=== PATIENT | male | born 1965 | race Caucasian/White ===

== ENCOUNTER → 2016-10-02 | Outpatient (CLI) | payer MEDICARE, OTHER ==
[2016-10-02 09:25] LABS: Appearance,Urine Clear (Clear); Bilirubin,Urine Negative (Negative); Glucose,Urine (UA) Negative (Negative); Ketones,Urine Negative (Negative); Leukocyte Esterase,Urine Negative (Negative); Nitrite,Urine Negative (Negative); PH, Urine 5.5 (5.0-8.0); Protein,Urine Negative (Negative); Specific Gravity,Urine 1.009 (1.001-1.035); UA Billing (MACRO vs. MICRO) CHEM; Urobilinogen,Urine <2.0 mg/dL (<2.0)
[2016-10-02 09:26] LABS: Basophils % (A) 1 %; CH 35.2; Eosinophils # (A) 0.4 k/uL (0-0.7); Eosinophils % (A) 7 %; HCT 49.2 % (39.0-53.0); HDW 2.94; HGB 17.1 gm/dL (13.0-17.5); Luc % (Auto) 2; Lymphocytes # (A) 1.1 k/uL (1.0-4.8); Lymphocytes % (A) 19 %; MCH 34.3 pg (25.0-35.0); MCHC 34.9 g/dL (31.0-37.0); MCV 98.3 fL (80.0-100.0); Mean Platelet Volume 8.6; Monocytes # (A) 0.3 k/uL (0-1.0); Monocytes % (A) 4 %; Neutrophils # (A) 3.8 k/uL (1.3-7.7); Neutrophils % (A) 67 %; RDW 13.2 % (11.5-15.5); WBC 5.7 k/uL (3.8-10.6); WBC (Perox) 5.71
--- NOTE | 2016-10-02 09:31 | XR ---
EXAMINATION TYPE: XR chest 2V DATE OF EXAM: 10/02/2016 9:26 AM COMPARISON: 12/25/2012 TECHNIQUE: PA and lateral views submitted. HISTORY: Cough and congestion FINDINGS: The lungs are clear and there is no pneumothorax, pleural effusion, or focal pneumonia. Biapical pl eural thickening. IMPRESSION: 1. No acute process.
[2016-10-02 10:21] LABS: ALT 59 U/L (21-72); AST 49 U/L (17-59); Alkaline Phosphatase 61 U/L (38-126); Anion Gap 10 mmol/L; Blood Urea Nitrogen 8 mg/dL (9-20); Calcium 9.4 mg/dL (8.4-10.2); Carbon Dioxide 23 mmol/L (22-30); Chloride 113 mmol/L (98-107); Cholesterol 166 mg/dL (<200); Creatine Kinase 31 U/L (55-170); Glucose 115 mg/dL (74-99); HDL Cholesterol 29 mg/dL (40-60); Non-African American GFR(MDRD) >60 (>60 ml/min/1.73 sqM); Potassium 3.9 mmol/L (3.5-5.1); Sodium 146 mmol/L (137-145); Total Protein 7.2 g/dL (6.3-8.2); Triglycerides 262 mg/dL (<150)
[2016-10-02 10:50] LABS: Prostate Specific Antigen 0.84 ng/mL (0.00-4.00)
[2016-10-02 10:52] LABS: Erythrocyte Sedimentation Rate 3 mm/hr (0-15)
[2016-10-02 11:08] LABS: Vitamin B12 368 pg/mL (239-931)
[2016-10-02 11:50] LABS: Hepatitis B Surface Ag Index 0.07
[2016-10-02 11:55] LABS: Hepatitis B Core IgM Index 0.04
[2016-10-02 12:07] LABS: Hepatitis C Virus IgG Index 0.02
[2016-10-02 12:13] LABS: Hepatitis C Virus IgG Ab Negative (Negative)
[2016-10-04 03:56] LABS: HIV-1/HIV-2 Ab Screen NONREAC (NON REAC)
== END ==
LOC: LABWHC1 09:02
PROVIDERS: ATTEND Family Medicine
DX: Z00.01 Encounter for general adult medical examination with abnormal findings (principal); R05 Cough; F32.1 Major depressive disorder, single episode, moderate; N40.1 Benign prostatic hyperplasia with lower urinary tract symptoms; Z11.59 Encounter for screening for other viral diseases
CPT/HCPCS: 36415; 71020; 80053; 80061; 80074; 81003; 82306; 82550; 82607; 84153; 84443; 85025; 85652; 87389

== ENCOUNTER 2016-10-23 20:01 | Emergency (ER) | payer MEDICARE, OTHER ==
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
[2016-10-23 21:25] VITALS: BP 118/82; PULSE 88; RESP 17; TEMP 98.7
== END 2016-10-23 21:23 ==
LOC: EC 20:01
DX: F10.229 Alcohol dependence with intoxication, unspecified (principal); F17.200 Nicotine dependence, unspecified, uncomplicated; Z02.89 Encounter for other administrative examinations; V49.88XA Car occupant (driver) (passenger) injured in other specified transport accidents, initial encounter; Y92.410 Unspecified street and highway as the place of occurrence of the external cause
CPT/HCPCS: 99282; 99283

== ENCOUNTER → 2017-05-02 | Outpatient (CLI) | payer MEDICARE, OTHER ==
[2017-05-02 11:19] LABS: Hemoglobin A1C 5.7 % (4.2-6.1)
[2017-05-02 13:35] LABS: Anion Gap 11 mmol/L; Blood Urea Nitrogen 8 mg/dL (9-20); Calcium 9.3 mg/dL (8.4-10.2); Carbon Dioxide 22 mmol/L (22-30); Chloride 113 mmol/L (98-107); Cholesterol 161 mg/dL (<200); Glucose 141 mg/dL (74-99); HDL Cholesterol 27 mg/dL (40-60); Lithium 0.6 mmol/L; Non-African American GFR(MDRD) >60 (>60 ml/min/1.73 sqM); Phosphorous 3.2 mg/dL (2.5-4.5); Potassium 4.1 mmol/L (3.5-5.1); Sodium 146 mmol/L (137-145)
== END | disposition home or self-care (01) ==
LOC: LABWHC1 07:18
PROVIDERS: ATTEND Psychiatry & Neurology Psychiatry
DX: F10.20 Alcohol dependence, uncomplicated (principal); F33.1 Major depressive disorder, recurrent, moderate; Z79.899 Other long term (current) drug therapy
CPT/HCPCS: 36415; 80061; 80069; 80178; 83036; 84439; 84443

== ENCOUNTER → 2018-06-28 | Outpatient (CLI) | payer MEDICARE, OTHER ==
--- NOTE | 2018-06-28 14:41 | XR ---
EXAMINATION TYPE: XR chest 2V DATE OF EXAM: 06/28/2018 COMPARISON: Prior chest x-ray 10/02/2016 HISTORY: Tobacco abuse TECHNIQUE: Frontal and lateral views of the chest are obtained. FINDINGS: There is no focal air space opacity, pleural effusion, or pneumothorax seen. The cardiac silhouette size is within normal limits. There is a spinal curvature. The osseous structures are in tact. IMPRESSION: No acute cardiopulmonary process.
== END ==
LOC: RADXRMAIN 12:07
PROVIDERS: ATTEND Internal Medicine
DX: Z09 Encounter for follow-up examination after completed treatment for conditions other than malignant neoplasm (principal); Z72.0 Tobacco use
CPT/HCPCS: 71046

== ENCOUNTER 2019-09-07 06:43 | Day surgery (SDC) | payer MEDICARE, OTHER ==
[2019-09-04 15:46] VITALS: BMI 31.1
--- NOTE | 2019-09-06 17:07 | P.GSHP ---
History of Present Illness H&P Date: 09/07/19 CHIEF COMPLAINT: Colon screen HISTORY OF PRESENT ILLNESS: The patient is a 54-year-old male who presents for colon screen. Lower endoscopy was offered for further evaluation and management. PAST MEDICAL HISTORY: Please see list. PAST SURGICAL HISTORY: Please see list. MEDICATIONS: Please see list. ALLERGIES: Please see list. SOCIAL HISTORY: No illicit drug use FAMILY HISTORY: No reports of Crohn disease or ulcerative colitis. REVIEW OF ORGAN SYSTEMS: CONSTITUTIONAL: No reports of fevers or chills. PHYSICAL EXAM: VITAL SIGNS: Stable GENERAL: Well-developed pleasant in no acute distress. HEENT: No scleral icterus. Extraocular movements grossly intact. Moist buccal mucosa. NECK: Supple without lymphadenopathy. CHEST: Unlabored respirations. Equal bilateral excursions. CARDIOVASCULAR: Regular rate and rhythm. Distal 2+ pulses. ABDOMEN: Soft, nontender, nondistended. MUSCULOSKELETAL: No clubbing, cyanosis, or edema. ASSESSMENT: 1. Colon screen. PLAN: 1. Recommend proceeding with a lower endoscopy Past Medical History Past Medical History: Thyroid Disorder History of Any Multi-Drug Resistant Organisms: None Reported Past Surgical History: Orthopedic Surgery Additional Past Surgical History / Comment(s): COLONOSCOPY. REPAIR FX RT LEG X 2. SKIN GRAFT AT AGE 3 Past Anesthesia/Blood Transfusion Reactions: No Reported Reaction Smoking Status: Current every day smoker - Past Family History Mother Family Medical History: No Reported History Medications and Allergies Home Medications Medication Instructions Recorded Confirmed Type FLUoxetine HCL [PROzac] 80 mg PO DAILY 09/04/19 09/04/19 History Levothyroxine Sodium [Synthroid] 50 mcg PO DAILY 09/04/19 09/04/19 History [place] Carbonate [[place] 600 mg PO BID 09/04/19 09/04/19 History Carbonate ER] OLANZapine 15 mg PO HS 09/04/19 09/04/19 History Topiramate [Topamax] 100 mg PO BID 09/04/19 09/04/19 History Vivitrol 1 dose INJ Q120D 09/04/19 History traZODone HCL 100 mg PO HS 09/04/19 09/04/19 History Allergies Allergy/AdvReac Type Severity Reaction Status Date / Time No Known Allergies Allergy Verified 09/04/19 15:37
[~2019-09-07 06:43] MED LIST: LACTATED RINGERS 1,000 ML IV SCH; LIDOCAINE 1% 20 ML VIAL (10MG/ML) FOR IV START INTRADERMA PRN
[2019-09-07 07:17] VITALS: TEMP 97
[2019-09-07] MEDS ORDERED: PROPOFOL 10 MG/ML 20 ML VIAL IV ONE (07:30)
--- NOTE | 2019-09-07 08:09 | P.PCN ---
Date of Procedure: 09/07/19 Description of Procedure: PREOPERATIVE DIAGNOSIS: Personal history of colon polyps Family history malignant colon polyps Colonoscopy screening POSTOPERATIVE DIAGNOSIS: Personal history of colon polyps Family history malignant colon polyps Colonoscopy screening Tubular adenoma ascending colon Tubular adenoma transverse colon Sigmoid diverticulosis Arteriovenous malformation descending colon OPERATION: Colonoscopy to the ileocecal valve and appendiceal orifice. Colonoscopy with multiple hot snare polypectomies Colonoscopy with cold forceps biopsies SURGEON: Lillie Barajas MD. ANESTHESIA: MAC. INDICATIONS: The patient is an 54-year-old male who presents family history of malignant colon polyps and personal history of colon polyps. Last colonoscopy within 5 years. Benefits and risks were described and informed consent was obtained. DESCRIPTION OF PROCEDURE: The patient had undergone Suprep. He had been brought into the operating room and laid in the left lateral decubitus position. After adequate intravenous sedation, the rectum was examined with 2% lidocaine jelly. The prostate fossa was unremarkable. No external hemorrhoids were encountered. The rectal tone was within normal limits. No lesions were palpated in the rectal vault. An Olympus colonoscope was advanced until the ileocecal valve and appendiceal orifice were clearly viewed. The prep was fair. Sigmoid diverticulosis was encountered. Multiple colonic polyps were found and snare polypectomy. No evidence of focal colitis was found. Arteriovenous malformation 4 mm at 30 cm from the anal verge, descending colon without bleeding. Retroflexion of the scope demonstrated grade 1 internal hemorrhoids without active bleeding or inflammation. The colon was desufflated. The patient had tolerated the procedure well. Withdrawal time was over 6 minutes. FINDINGS: Aron[place]ick preparation quality scale 3 (1-5) Internal hemorrhoids, grade 1 No external hemorrhoids Arteriovenous malformation 4 mm at descending colon, 30 cm from the anal verge without bleeding. Sigmoid diverticulosis Removal of 4 polyps: - Snare polypectomy mid transverse colon, 8 mm tubulovillous adenoma polyp. - Snare polypectomy proximal transverse colon, 6 mm flat villous adenoma polyp. - Snare polypectomy distal transverse colon, 5 mm flat villous adenoma polyp. - Cold forceps biopsy at ascending colon, 4 mm polyp. No focal colitis. RECOMMENDATIONS: Repeat colonoscopy in 3 years, 2022 Plan - Discharge Summary Discharge Rx Participant: No New Discharge Prescriptions: No Action Topiramate [Topamax] 100 mg PO BID Levothyroxine Sodium [Synthroid] 50 mcg PO DAILY FLUoxetine HCL [PROzac] 80 mg PO DAILY traZODone HCL 100 mg PO HS Vivitrol 1 dose INJ Q120D OLANZapine 15 mg PO HS [place] Carbonate [[place] Carbonate ER] 600 mg PO BID Discharge Medication List FLUoxetine HCL [PROzac] 80 mg PO DAILY 09/04/19 [History] Levothyroxine Sodium [Synthroid] 50 mcg PO DAILY 09/04/19 [History] [place] Carbonate [[place] Carbonate ER] 600 mg PO BID 09/04/19 [History] OLANZapine 15 mg PO HS 09/04/19 [History] Topiramate [Topamax] 100 mg PO BID 09/04/19 [History] Vivitrol 1 dose INJ Q120D 09/04/19 [History] traZODone HCL 100 mg PO HS 09/04/19 [History]
[2019-09-07 08:11] VITALS: PULSE 58; RESP 16
[2019-09-07 08:18] VITALS: BP 125/76
== END 2019-09-07 08:40 | disposition home or self-care (01) ==
LOC: ORWHC2ENDO 06:43
PROVIDERS: ATTEND Surgery Plastic and Reconstructive Surgery
DX: Z12.11 Encounter for screening for malignant neoplasm of colon (principal); D12.3 Benign neoplasm of transverse colon; D12.2 Benign neoplasm of ascending colon; K64.0 First degree hemorrhoids; K57.30 Diverticulosis of large intestine without perforation or abscess without bleeding; Q27.39 Arteriovenous malformation, other site; Z86.010 Personal history of colon polyps; Z80.0 Family history of malignant neoplasm of digestive organs; E07.9 Disorder of thyroid, unspecified; F17.200 Nicotine dependence, unspecified, uncomplicated; E66.9 Obesity, unspecified; Z68.31 Body mass index [BMI] 31.0-31.9, adult; F41.9 Anxiety disorder, unspecified; F31.9 Bipolar disorder, unspecified; F20.9 Schizophrenia, unspecified; F10.11 Alcohol abuse, in remission; Z79.890 Hormone replacement therapy; Z79.899 Other long term (current) drug therapy
CPT/HCPCS: 88305; 45380; 45385; J2704

== ENCOUNTER → 2021-02-03 | Outpatient (CLI) | payer MEDICARE, OTHER ==
[2021-02-03 20:55] LABS: African American GFR (CKD) 97.1 (60.0-200.0); Chol/HDL Ratio 5.19; LDL Cholesterol,Calculated 76.4 mg/dL (0.0-131.0); Non-African American GFR(CKD) 83.8 (60.0-200.0); VLDL Calculation 36.6 mg/dL (5.00-40.00)
[2021-02-03 21:04] LABS: T4, Free (Free Thyroxine) 0.9 ng/dL (0.80-1.80)
== END | disposition home or self-care (01) ==
LOC: LABWHC1 08:10
PROVIDERS: ATTEND Psychiatry & Neurology Psychiatry
DX: Z79.899 Other long term (current) drug therapy (principal)
CPT/HCPCS: 36415; 80061; 80178; 82565; 82947; 83036; 84439; 84443; 84520

== ENCOUNTER 2021-11-07 21:31 | Inpatient (IN) | payer MEDICARE, OTHER ==
--- NOTE | 2021-11-07 22:13 | ED ---
General Adult HPI - General Chief complaint: Overdose Stated complaint: Mental Health Time Seen by Provider: 11/07/21 21:34 Source: patient, EMS, RN notes reviewed, old records reviewed Mode of arrival: EMS Limitations: no limitations - History of Present Illness Initial comments: 56-year-old male presenting for evaluation of possible medication overdose. Patient was transferred for psychiatric evaluation. He was sent to outside emergency department with concerns that he may have inadvertently taken multiple days of his medication which included lithium trazodone, olanzapine. Patient was found to have elevated lithium level at 2.01. He also had some mild elevation in creatinine at 1.7. His urine drug screen was negative. Patient himself had no complaints. - Related Data Home Medications Medication Instructions Recorded Confirmed FLUoxetine HCL [PROzac] 80 mg PO DAILY 09/04/19 09/04/19 Levothyroxine Sodium [Synthroid] 50 mcg PO DAILY 09/04/19 09/04/19 [place] Carbonate [[place] 600 mg PO BID 09/04/19 09/04/19 Carbonate ER] OLANZapine 15 mg PO HS 09/04/19 09/04/19 Topiramate [Topamax] 100 mg PO BID 09/04/19 09/04/19 Vivitrol 1 dose INJ Q120D 09/04/19 09/07/19 traZODone HCL 100 mg PO HS 09/04/19 09/04/19 Allergies Allergy/AdvReac Type Severity Reaction Status Date / Time No Known Allergies Allergy Verified 09/04/19 15:37 Review of Systems ROS Statement: Those systems with pertinent positive or pertinent negative responses have been documented in the HPI. ROS Other: All systems not noted in ROS Statement are negative. Past Medical History Past Medical History: Thyroid Disorder History of Any Multi-Drug Resistant Organisms: None Reported Past Surgical History: Orthopedic Surgery Additional Past Surgical History / Comment(s): COLONOSCOPY. REPAIR FX RT LEG X 2. SKIN GRAFT AT AGE 3 Past Anesthesia/Blood Transfusion Reactions: No Reported Reaction Past Psychological History: Anxiety, Bipolar, Depression, Schizophrenia Past Alcohol Use History: None Reported, Abuse Past Drug Use History: None Reported - Past Family History Mother Family Medical History: No Reported History General Exam Limitations: altered mental status General appearance: alert, in no apparent distress Head exam: Present: atraumatic, normocephalic Eye exam: Present: normal appearance, PERRL ENT exam: Present: normal exam Neck exam: Present: normal inspection. Absent: tenderness, meningismus Respiratory exam: Present: normal lung sounds bilaterally. Absent: respiratory distress, wheezes Cardiovascular Exam: Present: regular rate, normal rhythm GI/Abdominal exam: Present: soft. Absent: distended, tenderness, guarding Extremities exam: Present: normal inspection, normal capillary refill. Absent: pedal edema Neurological exam: Present: alert, oriented X3, CN II-XII intact. Absent: motor sensory deficit Psychiatric exam: Present: normal affect, normal mood Skin exam: Present: warm, dry, intact. Absent: cyanosis, diaphoretic Course Vital Signs 11/07/21 21:35 Temperature 98.1 F Pulse Rate 60 Respiratory 16 Rate Blood Pressure 129/68 O2 Sat by Pulse 100 Oximetry EKG Findings - EKG Comments: EKG Findings:: Sinus bradycardia rate of 50 moderate intraventricular conduction delay, VT interval 192, QRS duration 117, QTC [address] segment elevation. Medical Decision Making - Medical Decision Making 56-year-old male transferred for evaluation of possible drug overdose, mildly elevated lithium level 2.01. And a K eye. Patient had been seen by Dr. Yu prior to transfer. Will be admitted to Dr. Yu for monitoring, psychiatric consultation, and repeat lithium levels. - Lab Data Result diagrams: 11/07/21 22:02 11/07/21 22:02 Lab Results 11/07/21 11/07/21 11/07/21 Range/Units 22:02 22:02 22:02 WBC 5.2 (3.8-10.6) k/uL RBC 3.95 L (4.30-5.90) m/uL Hgb 13.3 (13.0-17.5) gm/dL Hct 38.7 L (39.0-53.0) % MCV 98.1 (80.0-100.0) fL MCH 33.6 (25.0-35.0) pg MCHC 34.3 (31.0-37.0) g/dL RDW 12.2 (11.5-15.5) % Plt Count 191 (150-450) k/uL MPV 8.7 Neutrophils % 58 % Lymphocytes % 27 % Monocytes % 5 % Eosinophils % 8 % Basophils % 1 % Neutrophils # 3.0 (1.3-7.7) k/uL Lymphocytes # 1.4 (1.0-4.8) k/uL Monocytes # 0.2 (0-1.0) k/uL Eosinophils # 0.4 (0-0.7) k/uL Basophils # 0.1 (0-0.2) k/uL PT 11.6 (9.0-12.0) sec INR 1.1 (<1.2) Sodium 138 (137-145) mmol/L Potassium 3.7 (3.5-5.1) mmol/L Chloride 111 H (98-107) mmol/L Carbon Dioxide 16 L (22-30) mmol/L Anion Gap 11 mmol/L BUN 19 (9-20) mg/dL Creatinine 1.49 H (0.66-1.25) mg/dL Est GFR (CKD-EPI)AfAm 60 (>60 ml/min/1.73 sqM) Est GFR (CKD-EPI)NonAf 52 (>60 ml/min/1.73 sqM) Glucose 114 H (74-99) mg/dL Calcium 8.7 (8.4-10.2) mg/dL Magnesium 2.3 (1.6-2.3) mg/dL Total Bilirubin 0.4 (0.2-1.3) mg/dL AST 26 (17-59) U/L ALT 21 (4-49) U/L Alkaline Phosphatase 41 (38-126) U/L Total Protein 7.0 (6.3-8.2) g/dL Albumin 4.3 (3.5-5.0) g/dL Salicylates <1.0 mg/dL Acetaminophen <10.0 ug/mL [place] 1.7 mmol/L Serum Alcohol <10 mg/dL Disposition Clinical Impression: Accidental drug overdose, [place] overdose Disposition: ADMITTED IP TO THIS HOSP Condition: Stable Is patient prescribed a controlled substance at d/c from ED?: No Referrals: [facility] [Primary Care Provider] - 1-2 days Time of Disposition: 22:40
[2021-11-07 22:14] LABS: Basophils # (A) 0.1 k/uL (0-0.2); Basophils % (A) 1 %; Eosinophils # (A) 0.4 k/uL (0-0.7); Eosinophils % (A) 8 %; HCT 38.7 % (39.0-53.0); HGB 13.3 gm/dL (13.0-17.5); Lymphocytes # (A) 1.4 k/uL (1.0-4.8); Lymphocytes % (A) 27 %; MCH 33.6 pg (25.0-35.0); MCHC 34.3 g/dL (31.0-37.0); MCV 98.1 fL (80.0-100.0); Mean Platelet Volume 8.7; Monocytes # (A) 0.2 k/uL (0-1.0); Monocytes % (A) 5 %; Neutrophils % (A) 58 %; Platelet Count 191 k/uL (150-450); RBC 3.95 m/uL (4.30-5.90); RDW 12.2 % (11.5-15.5); WBC 5.2 k/uL (3.8-10.6)
[2021-11-07 22:22] LABS: ALT 21 U/L (4-49); AST 26 U/L (17-59); Acetaminophen <10.0 ug/mL; African American GFR (CKD) 60 (>60 ml/min/1.73 sqM); Albumin 4.3 g/dL (3.5-5.0); Alcohol <10 mg/dL; Alkaline Phosphatase 41 U/L (38-126); Anion Gap 11 mmol/L; Blood Urea Nitrogen 19 mg/dL (9-20); Calcium 8.7 mg/dL (8.4-10.2); Carbon Dioxide 16 mmol/L (22-30); Chloride 111 mmol/L (98-107); Glucose 114 mg/dL (74-99); Lithium 1.7 mmol/L; Magnesium 2.3 mg/dL (1.6-2.3); Non-African American GFR(CKD) 52 (>60 ml/min/1.73 sqM); Potassium 3.7 mmol/L (3.5-5.1); Salicylate <1.0 mg/dL; Sodium 138 mmol/L (137-145); Total Bilirubin 0.4 mg/dL (0.2-1.3)
[2021-11-07 22:35] LABS: INR 1.1 (<1.2); Prothrombin Time 11.6 sec (9.0-12.0)
[2021-11-07] MEDS ORDERED: ACETAMINOPHEN TAB 325 MG TAB PO PRN (22:41)
[2021-11-07] MEDS ORDERED: NALOXONE 0.4 MG/ML 1 ML VIAL IV PRN (22:41)
[2021-11-07] MEDS ORDERED: SODIUM CHLORIDE 0.9% 1,000 ML IV SCH (22:45)
[2021-11-08 00:13] LABS: Appearance,Urine Clear (Clear); Bilirubin,Urine Negative (Negative); Blood,Urine Negative (Negative); Color,Urine Colorless; Glucose,Urine (UA) Negative (Negative); Ketones,Urine Negative (Negative); Leukocyte Esterase,Urine Negative (Negative); Nitrite,Urine Negative (Negative); Protein,Urine Negative (Negative); Specific Gravity,Urine 1.002 (1.001-1.035); Urobilinogen,Urine <2.0 mg/dL (<2.0)
[2021-11-08 00:25] LABS: Amphetamine Screen,Urine Not Detected (NotDetected); Barbiturate Screen,Urine Not Detected (NotDetected); Benzodiazepines Screen,Urine Not Detected (NotDetected); Cocaine Screen,Urine Not Detected (NotDetected); Methadone Screen, Urine Not Detected (NotDetected); Opiate Screen,Urine Not Detected (NotDetected); Oxycodone Screen, Urine Not Detected (NotDetected); Phencyclidine Screen,Urine Not Detected (NotDetected); Tricyclic Antidepressant,Urine Not Detected (NotDetected); Urn Cannabinoid Scrn Not Detected (NotDetected)
[2021-11-08 08:15] LABS: Calcium 9.2 mg/dL (8.4-10.2); Lithium 1.5 mmol/L; Potassium 4.6 mmol/L (3.5-5.1)
[2021-11-08] MEDS ORDERED: PROCHLORPERAZINE 5 MG TAB PO PRN (09:19)
[2021-11-08] MEDS ORDERED: LACTULOSE 20 GM/30 ML CUP PO PRN (09:19)
[2021-11-08] MEDS ORDERED: CALCIUM CARBONATE 500 MG CHEWABLE PO PRN (09:19)
--- NOTE | 2021-11-08 10:43 | P.HPIM ---
History of Present Illness H&P Date: 11/07/21 Chief Complaint: Confused This is a 56-year-old patient who was initially brought to [facility] ER. Accompanied by his mother. Patient's chronic stable medical conditions include schizophrenia, hypertension, depression, alcohol abuse, hypothyroid. Patient does live by himself. Mother told the ER physician that the patient was found to bit confused and not acting himself a few weeks. His blister packed fully care was showing decreased 3 days of medication. Patient have accidentally taken increased lithium. Patient really cannot give much of history. Was able to answer simple questions. Creatinine level was 1.7. ; 1.5 on November 05 and 1.1 on 07/22/2021. Patient was transferred over to [facility] in [place] on under my service with a psychiatry consultation. Patient denies any fever or chills. Appetite is fair. No chest pain or shortness of breath. When I saw the patient the mother was not there. Patient could not tell me why he is in the hospital. lithium level was 2.01 on admission. Also his level was 1.02 on 07/22/2021 Review of systems: GEN.: None EYES: None HEENT: None NECK: None RESPIRATORY: None CARDIOVASCULAR: None GASTROINTESTINAL: None GENITOURINARY: None MUSCULOSKELETAL: None LYMPHATICS: None HEMATOLOGICAL: None PSYCHIATRY: Bit forgetful NEUROLOGICAL: None Past medical history to include: Schizophrenia, hypertension, depression, alcohol abuse, hypothyroid Social history: Lives alone. He does admit to drinking alcohol and smoking up to 2 weeks ago. Not able to give more details Family history: Reviewed, noncontributory to presentation Physical examination: VITAL SIGNS: 98.1, 60, 16, 129/68, 100% room air] GENERAL: BMI 24.7, sitting up in bed appearing a bit distant. EYES: Pupils equal. Conjunctiva normal. HEENT: External appearance of nose and ears normal, oral cavity grossly normal. NECK: JVD not raised; masses not palpable. HEART: First and second heart sounds are normal; no edema. LUNGS: Respiratory rate normal; clear to auscultation. ABDOMEN: Soft, nontender, liver spleen not palpable, no masses palpable. PSYCH: Patient knows his name is age he thinks is the hospital. Not sure why he is here.l. MUSCULOSKELETAL:No Clubbing/cyanosis;muscles-grossly intact NEUROLOGICAL: Cranial nerves grossly intact; no facial asymmetry, power and sensation grossly intact. LYMPHATICS: No lymph nodes palpable in the axilla and neck INVESTIGATIONS, reviewed in the clinical context: White count 5.2 hemoglobin 13.3 platelets 191 potassium 3.7 bicarb 16 BUN 19 creatinine 1.49 UA: Negative Urine drug screen: Negative [place]: 1.7 Labs from [facility]: [place] 2.01 from 11/07/2021. It was 1.02 on 07/22/2021 Previous labs: Creatinine 1.5 on 11/05/2021 and 1.1 on 07/22/2021 Assessment and plan: -[place] toxicity that may be acute on chronic. Note patient is 3 days of medications were missing. Also note that patient's creatinine has gone up since July 22 and patient has not been acting himself as per the mother. Patient's current creatinine is 1.7. [place] level was 2.01 at [facility]. [place] has been held. Follow levels. Consult psychiatry. -Acute kidney injury possibly from lithium IV fluids. Follow renal function. -Schizophrenia We'll resume home medications except for lithium. Consult psychiatry -Hypothyroid Synthroid 50 g a day -Alcohol use disorder Patient denies having had any alcohol for 2 weeks. Alcohol level less than 10 on presentation. Consults psychiatry. Resume home medications except for lithium. Check level in the morning. IV fluids. Telemetry. Given the complexity and severity of patient's condition expect the patient to be in the hospital at least for 2 overnights Past Medical History Past Medical History: Thyroid Disorder History of Any Multi-Drug Resistant Organisms: None Reported Past Surgical History: Orthopedic Surgery Additional Past Surgical History / Comment(s): COLONOSCOPY. REPAIR FX RT LEG X 2. SKIN GRAFT AT AGE 3 Past Anesthesia/Blood Transfusion Reactions: No Reported Reaction Past Psychological History: Anxiety, Bipolar, Depression, Schizophrenia Smoking Status: Former smoker Past Alcohol Use History: None Reported, Abuse Additional Past Alcohol Use History / Comment(s): HX ETOH-NO ALCOHOL FOR 106 DAYS OF TODAY Past Drug Use History: None Reported - Past Family History Mother Family Medical History: No Reported History Medications and Allergies Home Medications Medication Instructions Recorded Confirmed Type FLUoxetine HCL [PROzac] 80 mg PO DAILY 09/04/19 09/04/19 History Levothyroxine Sodium [Synthroid] 50 mcg PO DAILY 09/04/19 09/04/19 History [place] Carbonate [[place] 600 mg PO BID 09/04/19 09/04/19 History Carbonate ER] OLANZapine 15 mg PO HS 09/04/19 09/04/19 History Topiramate [Topamax] 100 mg PO BID 09/04/19 09/04/19 History Vivitrol 1 dose INJ Q120D 09/04/19 09/07/19 History traZODone HCL 100 mg PO HS 09/04/19 09/04/19 History Allergies Allergy/AdvReac Type Severity Reaction Status Date / Time No Known Allergies Allergy Verified 09/04/19 15:37 Physical Exam Vitals: Vital Signs Temp Pulse Pulse Resp BP BP Pulse Ox 11/08/21 04:30 57 L 18 112/67 99 11/07/21 23:55 98.1 F 54 L 18 107/64 99 11/07/21 23:34 74 16 118/59 100 11/07/21 21:35 98.1 F 60 16 129/68 100 Intake and Output 11/07/21 11/08/21 11/08/21 22:59 06:59 14:59 Intake Total 240 Balance 240 Intake: Oral 240 Other: Weight 82.554 kg 82.554 kg Results CBC & Chem 7: 11/07/21 22:02 11/08/21 07:37 Labs: Abnormal Lab Results - Last 24 Hours (Table) 11/07/21 11/07/21 11/08/21 Range/Units 22:02 22:02 07:37 RBC 3.95 L (4.30-5.90) m/uL Hct 38.7 L (39.0-53.0) % Chloride 111 H 116 H (98-107) mmol/L Carbon Dioxide 16 L (22-30) mmol/L Creatinine 1.49 H 1.48 H (0.66-1.25) mg/dL Glucose 114 H 109 H (74-99) mg/dL Thrombosis Risk Factor Assmnt - Choose All That Apply Each Factor Represents 1 point: Age 41-60 years Other Risk Factors: No Other congenital or acquired thrombophilia - If yes, enter type in comment: No Thrombosis Risk Factor Assessment Total Risk Factor Score: 1 Thrombosis Risk Factor Assessment Level: Low Risk
[2021-11-08] MEDS: LEVOTHYROXINE 50 MCG TAB PO SCH (10:46)
[2021-11-08] MEDS: TOPIRAMATE 100 MG TAB PO SCH ×2 (10:46→20:42)
[2021-11-08] MEDS: ENOXAPARIN 40 MG/0.4 ML SYRINGE SQ SCH (10:46)
[2021-11-08] MEDS: FLUoxetine HCL 20 MG CAP PO SCH (10:46)
--- NOTE | 2021-11-08 10:46 | P.PN ---
Progress Note - Text Progress Note Date: 11/08/21 Chief Complaint: Confused This is a 56-year-old patient who was initially brought to [facility] ER. Accompanied by his mother. Patient's chronic stable medical conditions include schizophrenia, hypertension, depression, alcohol abuse, hypothyroid. Patient does live by himself. Mother told the ER physician that the patient was found to bit confused and not acting himself a few weeks. His blister packed fully care was showing decreased 3 days of medication. Patient have accidentally taken increased lithium. Patient really cannot give much of history. Was able to answer simple questions. Creatinine level was 1.7. ; 1.5 on November 05 and 1.1 on 07/22/2021. Patient was transferred over to [facility] in [place] on under my service with a psychiatry consultation. Patient denies any fever or chills. Appetite is fair. No chest pain or shortness of breath. When I saw the patient the mother was not there. Patient could not tell me why he is in the hospital. lithium level was 2.01 on admission. Also his level was 1.02 on 07/22/2021 Admitted with lithium toxicity. Acute kidney injury. Arp has been held. IV fluids. November 08: Sitting up in bed. Did eat his breakfast. IV fluids. Pending input from psychiatry. Continue to hold lithium. Other medications to be resumed. Active Medications Acetaminophen (Acetaminophen Tab 325 Mg Tab) 650 mg PO Q6HR PRN PRN Reason: Mild Pain or Fever > 100.5 Calcium Carbonate/Glycine (Calcium Carbonate 500 Mg Chewable) 1,000 mg PO Q4HR PRN PRN Reason: Dyspepsia Enoxaparin Sodium (Enoxaparin 40 Mg/0.4 Ml Syringe) 40 mg SQ DAILY KAMRON Fluoxetine HCl (Fluoxetine Hcl 20 Mg Cap) 80 mg PO DAILY KAMRON Sodium Chloride (Saline 0.45%) 1,000 mls @ 130 mls/hr IV .Q7H42M KAMRON Lactulose (Lactulose 20 Gm/30 Ml Cup) 20 gm PO DAILY PRN PRN Reason: Constipation Levothyroxine Sodium (Levothyroxine 50 Mcg Tab) 50 mcg PO 0630 KAMRON Naloxone HCl (Naloxone 0.4 Mg/Ml 1 Ml Vial) 0.2 mg IV Q2M PRN PRN Reason: Opioid Reversal Olanzapine (Olanzapine 7.5 Mg Tab) 15 mg PO HS KAMRON Prochlorperazine Maleate (Prochlorperazine 5 Mg Tab) 5 mg PO Q8HR PRN PRN Reason: Nausea And Vomiting Topiramate (Topiramate 100 Mg Tab) 100 mg PO BID K[facility]RON Trazodone HCl (Trazodone Hcl 100 Mg Tab) 100 mg PO HS KAMRON Past medical history to include: Schizophrenia, hypertension, depression, alcohol abuse, hypothyroid Social history: Lives alone. He does admit to drinking alcohol and smoking up to 2 weeks ago. Not able to give more details Family history: Reviewed, noncontributory to presentation Physical examination: VITAL SIGNS: Afebrile, 57, 18, 1 12 x 67, 99% room air GENERAL: , sitting up in bed appears a bit distant. EYES: Pupils equal. Conjunctiva normal. HEENT: External appearance of nose and ears normal, oral cavity grossly normal. NECK: JVD not raised; masses not palpable. HEART: First and second heart sounds are normal; no edema. LUNGS: Respiratory rate normal; clear to auscultation. ABDOMEN: Soft, nontender, liver spleen not palpable, no masses palpable. PSYCH: Able tonsil simple questions. MUSCULOSKELETAL:No Clubbing/cyanosis;muscles-grossly intact INVESTIGATIONS, reviewed in the clinical context: November 08: Potassium 4.6 bicarb 22 creatinine 1.48 lithium 1.5 White count 5.2 hemoglobin 13.3 platelets 191 potassium 3.7 bicarb 16 BUN 19 creatinine 1.49 UA: Negative Urine drug screen: Negative Arp: 1.[address] [facility]: Arp 2.01 from 11/07/2021. It was 1.02 on 07/22/2021 Previous labs: Creatinine 1.5 on 11/05/2021 and 1.1 on 07/22/2021 Assessment and plan: -Arp toxicity that may be acute on chronic. Note patient is 3 days of medications were missing. Also note that patient's creatinine has gone up since July 22 and patient has not been acting himself as per the mother. Patient's current creatinine is 1.7. Arp level was 2.01 at [facility]. Arp has been held. Follow levels. Consult psychiatry. -Monitor lithium levels -Acute kidney injury possibly from lithium IV fluids. Follow renal function. -Schizophrenia We'll resume home medications except for lithium. Consult psychiatry -Hypothyroid Synthroid 50 g a day -Alcohol use disorder Patient denies having had any alcohol for 2 weeks. Alcohol level less than 10 on presentation. Awaiting psychiatry input. Continue current medications. Check thyroid function. IV fluids. Repeat lithium level in the morning.
[2021-11-08] MEDS: SODIUM CHLORIDE 0.45% 1,000 ML IV SCH ×2 (10:50→21:59)
--- NOTE | 2021-11-08 13:22 | P.CN ---
Psychiatric Consult - . Consult:: IDENTIFYING DATA: Patient is a 56-year-old male who was admitted for lithium toxicity HPI: Patient is a poor historian, and a majority of history was obtained from his mother Mary (who can be reached at [phone]). A few months ago, patient was court ordered to be seen at [facility] for alcoholism. Since being started on multiple medications at that time, he began having memory issues (for example, he forgot to pay his phone bill), poor concentration, increased sleep and sedation, disorientation, and tremors. Mom is not sure of the specific medication regimen, but states that patient has been compliant with his medications. Mother states that since being in the hospital, patient has significantly improved and is getting closer to his baseline Patient denies any suicidal or homicidal ideations intent or plan. At this time patient denies any auditory or visual hallucinations. Patient denies any flight of ideas racing thoughts and increased in goal directed behavior. PAST PSYCHIATRIC HISTORY: Has been following up at [facility] for a long time mostly for counseling. A few months ago, he was court ordered to get treatment for alcoholism. Since then he has been on Vivitrol shot (his next shot is due on 11/11/2021) as well as on other psychiatric medications. There have been no psychiatric hospitalizations. PMH: Hypertension, hypothyroid, umbilical hernia ALLERGIES: as per EMR CHEMICAL DEPENDENCY HISTORY: Quit all substances a few months ago FAMILY PSYCHIATRIC/SUBSTANCE USE HISTORY: [denies] SOCIAL HISTORY: Lives by himself. On disability MENTAL STATUS EXAM: General Appearance: 56-year-old male with white hair who appears older than stated age, dressed appropriately in her [facility] gown, lying in bed Behavior: Patient is seated without any agitated behavior. [] Speech: Patient's speech is [fluent and nonpressured.] Mood/Affect: Constricted affect Suicidality/Homicidality: Patient denies having any homicidal ideation intent or plan. [Denies any suicidal ideations intent or plan] Perceptions: Patient denies any visual hallucinations [and denies any auditory hallucinations] Though content/process: [There is no evidence of any delusional thought content and thought process is linear and goal-directed.] Memory and concentration: Grossly impaired, but this could also be due to him not having hearing aids Judgment and insight: [poor] IMPRESSIONS: Mood disoder unspecified History was limited today as patient appeared to be mildly confused and could not give a full history. Moreover, his mother did not know his entire mental health history. Per mother's history, patient appeared to be showing signs of lithium toxicity (confusion, tremors, lethargy) prior to hospitalization, and has improved significantly since being in the hospital. Therefore, it is prudent to continue to hold PLAN: -Continue to hold lithium -Continue Prozac 80 mg daily, Zyprexa 15 mg qhs, Trazodone 100 mg qhs, and Topamax 100 mg bid, may consider tapering down on some of these meds depending on patient's memory issues and lethargy (at [facility], patient is fully independent and can do all his ADLs) -Follow up with [facility] tomorrow to obtain more information about his medication regimen (per mother, patient was doing well before he was started on [place] a few months ago - need to find out what medicine regimen that was) -Continue to follow up with mother (Mary [phone]) who has been asked to bring his medication list in -Psychiatry will continue to follow 11/08/21 13:09
[2021-11-08] MEDS ORDERED: traZODone HCL 100 MG TAB PO SCH (21:00)
[2021-11-08] MEDS ORDERED: OLANZapine 7.5 MG TAB PO SCH (21:00)
[2021-11-09 05:45] VITALS: RESP 18
[2021-11-09] MEDS: LEVOTHYROXINE 50 MCG TAB PO SCH (06:34)
[2021-11-09] MEDS: SODIUM CHLORIDE 0.45% 1,000 ML IV SCH ×2 (06:35→09:06)
[2021-11-09 07:51] LABS: Calcium 9.3 mg/dL (8.4-10.2); Lithium 0.9 mmol/L; Potassium 4.9 mmol/L (3.5-5.1)
[2021-11-09] MEDS: TOPIRAMATE 100 MG TAB PO SCH (09:06)
[2021-11-09] MEDS: ENOXAPARIN 40 MG/0.4 ML SYRINGE SQ SCH (09:06)
[2021-11-09] MEDS: FLUoxetine HCL 20 MG CAP PO SCH (09:06)
--- NOTE | 2021-11-09 13:46 | P.PN ---
Progress Note - Text Progress Note Date: 11/09/21 Interval History: Patient was seen resting in bed and was directable and agreeable to speak with this provider in his room with his mother (Mary Kimbrough) present. Patient reports he wishes to have his mother present during the psychiatric interview. Currently the patient and mother both report he is doing much better. They report he is much more alert and oriented compared to how he was 3 days ago. The patient is currently reporting an improved mood. He is denying any suicidal or homicidal ideation, intention, and/or plan. He reports no auditory or visual hallucinations. He denies any paranoia or other delusions. The patient has been adherent with his medications. His mother expresses concern that the patient has had memory difficulties and believes he might be over medicated. They are agreeable to hold the lithium due to the lithium toxicity. They are also open to reducing his topamax due to possible cognitive side effects. No other concern at this time. The patient is willing to follow-up in the outpatient setting. Mental Status Exam: General Appearance: Patient appears to be stated age is alert, directable, and cooperative. Wearing a hospital gown. Behavior: Patient is calmly seated without any agitated behavior. Speech: Patient's speech is fluent and nonpressured. Monotone. Normal volume. Hard of hearing (wears hearing aids) Mood/Affect: Mood is "feeling good." Affect is constricted but euthymic. Suicidality/Homicidality: Patient denies any suicidal or homicidal ideation, intention, and/or plan. Perceptions: Patient denies any visual hallucinations and denies any auditory hallucinations Though content/process: There is no evidence of any delusional thought content and thought process is linear and goal-directed. Memory and concentration: AOX3, grossly intact for the purposes of this session Judgment and insight: Improving mildly Vital Signs Temp 97.4 F L 11/09/21 08:10 Pulse 51 L 11/09/21 08:10 Resp 18 11/09/21 08:10 BP 119/56 11/09/21 08:10 Pulse Ox 97 11/09/21 09:37 Intake & Output 11/08/21 11/09/21 11/09/21 18:59 06:59 18:59 Intake Total 1560 240 Balance 1560 240 Intake: Intake, IV Titration 780 Amount Sodium Chloride 0.45% 1, 780 000 ml @ 130 mls/hr IV . Q7H42M [facility] Rx#:[id number] Oral 780 240 Other: # Voids 1 Laboratory Results - Last 24 Hours 11/09/21 06:38 Sodium 145 Potassium 4.9 Chloride 116 H Carbon Dioxide 22 Anion Gap 7 BUN 13 Creatinine 1.33 H Est GFR (CKD-EPI)AfAm 69 Est GFR (CKD-EPI)NonAf 59 Glucose 116 H Calcium 9.3 [place] 0.9 Assessment: [place] Toxicity Unspecified Mood disorder Alcohol Use Disorder, in remission. Plan: -Continue your medical management. -At this time patient DOES NOT meet criteria for inpatient psychiatric admission. He is alert and oriented in all spheres. Does not present with imminent risk of harm to self or others. -Delirium precautions recommended with patient including - avoiding use of narcotics and [employer] sedatives, limit anticholinergic medications when possible, frequent re-orientation, minimize use of restraints, open window shades during the day and close them at night -Would recommend the following medication changes/additions: Continue Zyprexa 15 mg at bedtime Continue Prozac 80 mg daily Continue Trazodone 100 mg at bedtime Decrease Topamax to 75 mg in the morning and 100 mg at bedtime due to concerns for cognitive side effects. -Recommend outpatient psychiatric follow-up. -Patient is cleared psychiatrically for discharge. -Psychiatry will sign off at this point, please contact with any questions.
[2021-11-09 18:16] VITALS: BP 114/62; PULSE 54; TEMP 97.2
[2021-11-09] MEDS ORDERED: TOPIRAMATE 100 MG TAB PO SCH (21:00)
--- NOTE | 2021-11-09 21:24 | P.DS ---
Providers Date of admission: 11/07/21 22:41 Expected date of discharge: 11/09/21 Attending physician: Cruzito Yu Consults: 11/07/21 22:41 Consult Physician Routine Consulting Provider: Flip Arriaga Consult Reason/Comments: Psychiatric evaluation Do you want consulting provider notified?: Yes Primary care physician: [facility] Course: Chief Complaint: Confused This is a 56-year-old patient who was initially brought to [facility] ER. Accompanied by his mother. Patient's chronic stable medical conditi ons include schizophrenia, hypertension, depression, alcohol abuse, hypothyroid. Patient does live by himself. Mother told the ER physician that the patient was found to bit confused and not acting himself a few weeks. His blister packed fully care was showing decreased 3 days of medication. Patient have accidentally taken increased lithium. Patient really cannot give much of history. Was able to answer simple questions. Creatinine level was 1.7. ; 1.5 on November 05 and 1.1 on 07/22/2021. Patient was transferred over to [facility] in [place] on under my service with a psychiatry consultation. Patient denies any fever or chills. Appetite is fair. No chest pain or shortness of breath. When I saw the patient the mother was not there. Patient could not tell me why he is in the hospital. lithium level was 2.01 on admission. Also his level was 1.02 on 07/22/2021 Admitted with lithium toxicity. Acute kidney injury. Trevorton has been held. IV fluids. November 08: Sitting up in bed. Did eat his breakfast. IV fluids. Pending input from psychiatry. Continue to hold lithium. Other medications to be resumed. November 09: Patient doing better. Care was discussed with patient's mother at the bedside. Patient was seen by Dr. Bowden from psychiatry. Medication adjusted. Trevorton is not to be resumed. Patient eating well. He'll follow-up with [facility]. Discussion and discharge planning more than 35 minutes Past medical history to include: Schizophrenia, hypertension, depression, alcohol abuse, hypothyroid Social history: Lives alone. He does admit to drinking alcohol and smoking up to 2 weeks ago. Not able to give more details Family history: Reviewed, noncontributory to presentation Physical examination: VITAL SIGNS: 97.2, 54, 18, 140s/62, 98% room air GENERAL: , sitting up in bed comfortable EYES: Pupils equal. Conjunctiva normal. HEENT: External appearance of nose and ears normal, oral cavity grossly normal. NECK: JVD not raised; masses not palpable. HEART: First and second heart sounds are normal; no edema. LUNGS: Respiratory rate normal; clear to auscultation. ABDOMEN: Soft, nontender, liver spleen not palpable, no masses palpable. PSYCH: Answering questions appropriately MUSCULOSKELETAL:No Clubbing/cyanosis;muscles-grossly intact INVESTIGATIONS, reviewed in the clinical context: November 09: Potassium 4.9 creatinine 1.33 lithium 0.9 November 08: Potassium 4.6 bicarb 22 creatinine 1.48 lithium 1.5 White count 5.2 hemoglobin 13.3 platelets 191 potassium 3.7 bicarb 16 BUN 19 creatinine 1.49 UA: Negative Urine drug screen: Negative [place]: 1.7 Labs from [facility]: [place] 2.01 from 11/07/2021. It was 1.02 on 07/22/2021 Previous labs: Creatinine 1.5 on 11/05/2021 and 1.1 on 07/22/2021 Assessment and plan: -Trevorton toxicity that may be acute on chronic. Note patient is 3 days of medications were missing. Also note that patient's creatinine has gone up since July 22 and patient has not been acting himself as per the mother. Patient's current creatinine is 1.7. Trevorton level was 2.01 at [facility]. Trevorton has been discontinued.. -Monitor lithium levels -Acute kidney injury possibly from lithium IV fluids. Renal function improving -Schizophrenia Medications: Zyprexa 15 mg daily at bedtime, Prozac 80 mg daily, trazodone 100 mg daily at bedtime. Decreased Topamax to 75 mg a morning and 100 mg daily at bedtime. Trevorton discontinued. -Hypothyroid Synthroid 50 g a day -Alcohol use disorder Patient denies having had any alcohol for 2 weeks. Alcohol level less than 10 on presentation. Disposition: Home Patient Condition at Discharge: Stable Plan - Discharge Summary Discharge Rx Participant: No New Discharge Prescriptions: New Topiramate [Topamax] 75 mg PO DAILY #30 tab traZODone HCL [Desyrel] 100 mg PO HS #30 tab OLANZapine [ZyPREXA] 15 mg PO HS #60 tab Continue Levothyroxine Sodium [Synthroid] 50 mcg PO AC-BRKFST FLUoxetine HCL [PROzac] 80 mg PO DAILY metFORMIN HCL ER [Glucophage XR] 500 mg PO BID Fenofibrate Nanocrystallized [Fenofibrate] 145 mg PO DAILY Naltrexone Microspheres [Vivitrol] 380 mg IM Q28D Changed Topiramate [Topamax] 100 mg PO HS #0 Discontinued traZODone HCL 150 mg PO HS OLANZapine 20 mg PO HS [place] Carbonate 600 mg PO BID lisinopriL [Zestril] 2.5 mg PO DAILY Discharge Medication List FLUoxetine HCL [PROzac] 80 mg PO DAILY 09/04/19 [History] Levothyroxine Sodium [Synthroid] 50 mcg PO AC-BRKFST 09/04/19 [History] Fenofibrate Nanocrystallized [Fenofibrate] 145 mg PO DAILY 11/09/21 [History] Naltrexone Microspheres [Vivitrol] 380 mg IM Q28D 11/09/21 [History] OLANZapine [ZyPREXA] 15 mg PO HS #60 tab 11/09/21 [Rx] Topiramate [Topamax] 75 mg PO DAILY #30 tab 11/09/21 [Rx] Topiramate [Topamax] 100 mg PO HS #0 11/09/21 [Rx] metFORMIN HCL ER [Glucophage XR] 500 mg PO BID 11/09/21 [History] traZODone HCL [Desyrel] 100 mg PO HS #30 tab 11/09/21 [Rx] Follow up Appointment(s)/Referral(s): dr ALAN [Other] - [facility] - 11/10/21 3:30 pm Patient Instructions/Handouts: Trev[place] Toxicity (ED) Activity/Diet/Wound Care/Special Instructions: See Renee @[facility] on Tuesday - keep your normal appointment
[2021-11-10] MEDS ORDERED: TOPIRAMATE 25 MG TAB PO SCH (09:00)
== END 2021-11-09 19:00 | disposition home or self-care (01) | DRG 918 ==
LOC: EC 21:31 → SUPCPDRO 21:31 → 3SCARD 22:41
PROVIDERS: ADMIT Hospitalist; ATTEND Hospitalist
DX: T43.591A Poisoning by other antipsychotics and neuroleptics, accidental (unintentional), initial encounter (principal); N17.9 Acute kidney failure, unspecified; E03.9 Hypothyroidism, unspecified; F10.11 Alcohol abuse, in remission; F20.9 Schizophrenia, unspecified; F41.9 Anxiety disorder, unspecified; I10 Essential (primary) hypertension; K59.00 Constipation, unspecified; Z79.890 Hormone replacement therapy; Z79.899 Other long term (current) drug therapy; Z87.891 Personal history of nicotine dependence; Z28.310 Unvaccinated for COVID-19; Z60.2 Problems related to living alone; Z98.890 Other specified postprocedural states
CPT/HCPCS: 36415; 80048; 80053; 80143; 80178; 80179; 80306; 80320; 81003; 82075; 83735; 84443; 85025; 85610; 93005; 94760

== ENCOUNTER → 2022-08-20 | Outpatient (CLI) | payer MEDICARE, OTHER ==
[2022-08-20 16:08] LABS: Chol/HDL Ratio 8.98 Ratio; Glucose 198 mg/dL (70-110); LDL Cholesterol,Calculated 93.4 mg/dL (0.0-131.0)
== END | disposition home or self-care (01) ==
LOC: LABWHC1 07:47
PROVIDERS: ATTEND Psychiatry & Neurology Psychiatry
DX: F20.9 Schizophrenia, unspecified (principal); Z79.899 Other long term (current) drug therapy
CPT/HCPCS: 36415; 80061; 82947; 83036; 84439; 84443

== ENCOUNTER 2022-12-15 08:38 | Day surgery (SDC) | payer MEDICARE, OTHER ==
[~2022-12-15 08:38] MED LIST changes: -LIDOCAINE 1% 20 ML VIAL (10MG/ML) FOR IV START INTRADERMA PRN
--- NOTE | 2022-12-15 08:56 | P.GSHP ---
History of Present Illness H&P Date: 12/15/22 CHIEF COMPLAINT: Colon screen HISTORY OF PRESENT ILLNESS: The patient is a 57-year-old male who presents for colon screen. Lower endoscopy was offered for further evaluation and management. PAST MEDICAL HISTORY: Please see list. PAST SURGICAL HISTORY: Please see list. MEDICATIONS: Please see list. ALLERGIES: Please see list. SOCIAL HISTORY: No illicit drug use FAMILY HISTORY: No reports of Crohn disease or ulcerative colitis. REVIEW OF ORGAN SYSTEMS: CONSTITUTIONAL: No reports of fevers or chills. PHYSICAL EXAM: VITAL SIGNS: Stable GENERAL: Well-developed pleasant in no acute distress. HEENT: No scleral icterus. Extraocular movements grossly intact. Moist buccal mucosa. NECK: Supple without lymphadenopathy. CHEST: Unlabored respirations. Equal bilateral excursions. CARDIOVASCULAR: Regular rate and rhythm. Distal 2+ pulses. ABDOMEN: Soft, nontender, nondistended. MUSCULOSKELETAL: No clubbing, cyanosis, or edema. ASSESSMENT: 1. Colon screen. PLAN: 1. Recommend proceeding with a lower endoscopy Past Medical History Past Medical History: Diabetes Mellitus, Hyperlipidemia, Hypertension, Thyroid Disorder Additional Past Medical History / Comment(s): NOT A GREAT HISTORIAN. [facility] ORDERS HIS MEDS. MENTAL HEALTH & ETOH HISTORY. History of Any Multi-Drug Resistant Organisms: None Reported Past Surgical History: Orthopedic Surgery Additional Past Surgical History / Comment(s): COLONOSCOPY. REPAIR FX RT LEG X 2. SKIN GRAFT AT AGE 3 (CAUGHT IN RINGER WASHER) Past Anesthesia/Blood Transfusion Reactions: No Reported Reaction Past Psychological History: Anxiety, Bipolar, Depression, Schizophrenia Additional Psychological History / Comment(s): PARANOID SCHIZOPHRENIA Smoking Status: Former smoker Past Alcohol Use History: None Reported, Abuse Additional Past Alcohol Use History / Comment(s): SMOKES [address] HX ETOH-NO ALCOHOL FOR 3.5 YEARS Past Drug Use History: None Reported - Past Family History Mother Family Medical History: No Reported History Medications and Allergies Home Medications Medication Instructions Recorded Confirmed Type FLUoxetine HCL [PROzac] 80 mg PO DAILY 09/04/19 12/13/22 History Levothyroxine Sodium [Synthroid] 50 mcg PO AC-BRKFST 09/04/19 12/13/22 History Fenofibrate Nanocrystallized 145 mg PO DAILY 11/09/21 12/13/22 History [Fenofibrate] Naltrexone Microspheres [Vivitrol] 380 mg IM Q28D 11/09/21 12/13/22 History metFORMIN HCL ER [Glucophage XR] 500 mg PO BID 11/09/21 12/13/22 History OLANZapine [ZyPREXA] 20 mg PO HS 12/13/22 12/13/22 History lisinopriL 2.5 mg PO DAILY 12/13/22 12/13/22 History traZODone HCL [Desyrel] 150 mg PO HS 12/13/22 12/13/22 History Allergies Allergy/AdvReac Type Severity Reaction Status Date / Time No Known Allergies Allergy Verified 12/15/22 08:53
[2022-12-15 09:10] LABS: Glucose,Whole Blood 188 mg/dL (70-110)
[2022-12-15 09:12] VITALS: TEMP 98
[2022-12-15] MEDS ORDERED: PROPOFOL 10 MG/ML 20 ML VIAL IV ONE (09:30)
[2022-12-15 10:06] LABS: Glucose,Whole Blood 159 mg/dL (70-110)
--- NOTE | 2022-12-15 10:09 | P.PCN ---
Date of Procedure: 12/15/22 Description of Procedure: PREOPERATIVE DIAGNOSIS: Personal history colon polyps Colonoscopy screening. POSTOPERATIVE DIAGNOSIS: Colonoscopy screening. Diverticulosis, scattered. OPERATION: Colonoscopy to the cecum, ileocecal valve and appendiceal orifice. SURGEON: Lillie Barajas MD. ANESTHESIA: MAC. INDICATIONS: The patient is a 57-year-old male who presents for colonoscopy screening. last colonoscopy 5 years ago with polyps. Benefits and risks were described and informed consent was obtained. DESCRIPTION OF PROCEDURE: The patient had undergone GoLYTELY prep. The patient had been brought into the operating room and laid in the left lateral decubitus position. After adequate intravenous sedation, the rectum was examined with 2% lidocaine jelly. No external hemorrhoids were encountered. The rectal tone was within normal limits. No lesions were palpated in the rectal vault. An Olympus colonoscope was advanced until the cecum, ileocecal valve and appendiceal orifice were clearly viewed. The prep was good. No large scattered diverticulosis was encountered. No colonic polyps were found. No evidence of focal colitis was found. Retroflexion of the scope demonstrated grade 1 internal hemorrhoids without active bleeding or inflammation. The colon was desufflated. The patient had tolerated the procedure well. Withdrawal time was over 6 minutes. FINDINGS: Aronchick preparation quality scale (1-5) Internal hemorrhoids, grade 1 No external prolapsed hemorrhoids. No arteriovenous malformations. No adenomatous polyps. No focal colitis. RECOMMENDATIONS: Lower endoscopy 5 years, 2027 Plan - Discharge Summary Discharge Rx Participant: No New Discharge Prescriptions: Continue Levothyroxine Sodium [Synthroid] 50 mcg PO AC-BRKFST FLUoxetine HCL [PROzac] 80 mg PO DAILY metFORMIN HCL ER [Glucophage XR] 500 mg PO BID traZODone HCL [Desyrel] 150 mg PO HS lisinopriL 2.5 mg PO DAILY Fenofibrate Nanocrystallized [Fenofibrate] 145 mg PO DAILY Naltrexone Microspheres [Vivitrol] 380 mg IM Q28D OLANZapine [ZyPREXA] 20 mg PO HS Discharge Medication List FLUoxetine HCL [PROzac] 80 mg PO DAILY 09/04/19 [History] Levothyroxine Sodium [Synthroid] 50 mcg PO AC-BRKFST 09/04/19 [History] Fenofibrate Nanocrystallized [Fenofibrate] 145 mg PO DAILY 11/09/21 [History] Naltrexone Microspheres [Vivitrol] 380 mg IM Q28D 11/09/21 [History] metFORMIN HCL ER [Glucophage XR] 500 mg PO BID 11/09/21 [History] OLANZapine [ZyPREXA] 20 mg PO HS 12/13/22 [History] lisinopriL 2.5 mg PO DAILY 12/13/22 [History] traZODone HCL [Desyrel] 150 mg PO HS 12/13/22 [History] Follow up Appointment(s)/Referral(s): Lillie Barajas MD [STAFF PHYSICIAN] - As Needed Patient Instructions/Handouts: Moderate Sedation (DC) Activity/Diet/Wound Care/Special Instructions: Repeat colonoscopy 5 years, 2027 Discharge Disposition: HOME SELF-CARE
[2022-12-15 10:23] VITALS: BP 118/86; PULSE 66; RESP 15
== END 2022-12-15 11:04 | disposition home or self-care (01) ==
LOC: ORWHC2ENDO 08:38
PROVIDERS: ATTEND Surgery Plastic and Reconstructive Surgery
DX: Z12.11 Encounter for screening for malignant neoplasm of colon (principal); K57.30 Diverticulosis of large intestine without perforation or abscess without bleeding; K64.0 First degree hemorrhoids; I10 Essential (primary) hypertension; E78.5 Hyperlipidemia, unspecified; E11.9 Type 2 diabetes mellitus without complications; E07.9 Disorder of thyroid, unspecified; F41.9 Anxiety disorder, unspecified; F32.A Depression, unspecified; Z79.84 Long term (current) use of oral hypoglycemic drugs; Z86.010 Personal history of colon polyps; Z98.890 Other specified postprocedural states; Z87.891 Personal history of nicotine dependence; Z79.899 Other long term (current) drug therapy
CPT/HCPCS: 45378; J2704